=== PATIENT | female | born 1955 | race Caucasian/White ===

== ENCOUNTER → 2017-12-01 | Day surgery (SDC) | payer OTHER ==
[~2017-12-01] VITALS: Ht 167.6 cm; Wt 109.9 kg
[~2017-12-01] MED LIST: AMBI5TAB PO; ASPI-516 CHEW; BETA0.052 TOPICAL; CALC600T5 PO; CHLORHEXIDINE GLUCONATE 2 % 1 PACK (2 CLOTHS) TOPICAL PRN; DO NOT ADM ANY ANTICOAGULANT DRUGS PRN; ESCI10TA PO; FISHCAP4 PO; FLUT50SP EACH NARE; GLUCTAB32 PO; IBUP200C PO; INSULIN HUMAN REGULAR 1,000 UNITS/10 ML VIAL SQ PRN; KETAMINE HCL 10 MG/5 ML SYRINGE IV PUSH ONE; LACTATED RINGER'S 1000 ML IV PRN; LEVO.125 PO; LIDOCAINE HCL 1% PF 5 ML SYRINGE OTHER ONE; LOPE-1 PO; LOSA100T PO; MAGN100T4 PO; METF1000 PO; METOPROLOL TARTRATE 25 MG TAB PO PRN; MIDAZOLAM HCL 2 MG/2 ML VIAL ONE; MILK175T PO; POVIDONE IODINE 5% (ANTISEPSIS KIT) 4 APPLICATIONS EACH NARE PRN; PROPOFOL 200 MG/20 ML AMP IV ONE; RANI150T PO; SIMV10TA PO; SODIUM CHLORID 0.9% 500 ML IV PRN; SODIUM CHLORIDE 0.9% 20 ML VIAL IV ONE; TYLE325T PO; ZINC50TA2 PO; ceFAZolin 1,000 MG/NS 100 ML IV SCH; ceFAZolin INJ 1,000 MG VIAL ONE
[2017-12-01 11:51] LABS: BASOPHIL % 0.6 % (0.0-2.0); EOSINOPHIL # 0.5 TH/MM3 (0-0.4); EOSINOPHIL % 7.6 % (0.0-4.0); HEMOGLOBIN 12.5 GM/DL (11.6-15.3); LYMPHOCYTE # 1.7 TH/MM3 (1.0-4.8); MEAN CELL VOLUME 89.5 FL (80.0-100.0); MEAN CORPUSCULAR HEMOGLOBIN 30.2 PG (27.0-34.0); MEAN CORPUSCULAR HGB CONC 33.7 % (32.0-36.0); MEAN PLATELET VOLUME 8.4 FL (7.0-11.0); MONO % 8.2 % (0.0-8.0); MONOCYTE # 0.6 TH/MM3 (0-0.9); NEUT % 58.6 % (16.0-70.0); PLATELET COUNT 296 TH/MM3 (150-450); RED BLOOD COUNT 4.14 MIL/MM3 (4.00-5.30); RED CELL DISTRIBUTION WIDTH 13.8 % (11.6-17.2); WHITE BLOOD COUNT 6.9 TH/MM3 (4.0-11.0)
--- NOTE | 2017-12-01 13:59 | PD.OP ---
Operative Report Date of Surgery: Dec 01, 2017 Preoperative Diagnosis: Urge and rectal incontinence Postoperative Diagnosis: Same Procedure: InterStim battery failure Anesthesia: MAC with local Surgeon: Kris Sanchez Geological Manager(s): None Resident Surgeon: None Operation and Findings: 62-year-old female presented to the office with history of urge and rectal incontinence. Patient with InterStim battery failure requiring InterStim battery change. Risk and benefits were discussed preoperatively and the patient was willing to proceed. The patient was properly identified and placed in the prone position per the OR protocol, and MAC anesthesia was administered. She was prepped and draped in usual sterile fashion and preprocedure antibiotics were given. Local injection of half percent Marcaine was also administered to the area of the prior incision site. The previous upper buttock incision was opened using blunt dissection and the lead connection was identified and evaluated. The InterStim battery was then delivered out of the wound along with the lead. Care was taken to avoid damaging the lead. The single screw was loosened with a torque wrench and the lead was then from the InterStim battery. The the old battery was removed and the new battery was then placed into the area of the wound. The lead was then inserted into the new InterStim battery and secured with the torque wrench. The nurse member was placed into the pocket and the etched identification site was placed upwards and any excessive lead was placed around the neurotransmitter. The clinical operating systems programmer telemetry head, covered by a sterile sleeve, was placed over the implanted neurostimulator to ensure proper lead connection and that parameters were within normal range. Impedance were confirmed to be within normal limits, greater than 50 and less than 4000 ohms. The wound was irrigated with antibiotic solution and sterile water and closed with a 2-0 Vicryl suture. The skin was then closed with a running Monocryl suture. Counts were correct. Adhesive strips and gauze were placed over the incision and covered with transparent dressing. Blood loss was minimal. The patient was awoken and then transferred recovery in stable condition. Using clinical operating systems programmer the inner stem was then programmed. The patient was provided utilization instructions for the patient operating systems programmer prior to discharge. She tolerated the procedure well follow-up in the office in 1 month. CPT code for the procedure are as follows: [id number] Kris Sanchez DO Dec 01, 2017 13:59
[2017-12-01 16:00] VITALS: BP 159/74; PULSE 63; RESP 20; TEMP 98.2; O2SAT 95
--- NOTE | 2017-12-02 10:43 | EKG ---
Date Performed: 12/01/2017 Time Performed: 11:01:21 PTAGE: 62 years EKG: Normal Sinus rhythm Normal ECG PREVIOUS TRACING : 12/20/2011 10.18 Since the previous tracing, no significant change noted DOCTOR: Maverick Jimenez Interpretating Date/Time 12/02/2017 10:41:47
== END | disposition home or self-care (01) ==
LOC: HSDC 10:06
PROVIDERS: ATTEND Urology
DX: N39.41 Urge incontinence (principal); R15.9 Full incontinence of feces; I10 Essential (primary) hypertension
CPT/HCPCS: 00300; 64590; 82948; 85025; 88300; 93005; 95971; C1767; C1787; J0690; J2250

== ENCOUNTER → 2017-12-15 | Outpatient (CLI) | payer OTHER ==
[~2017-12-15] MED LIST changes: -CHLORHEXIDINE GLUCONATE 2 % 1 PACK (2 CLOTHS) TOPICAL PRN; -DO NOT ADM ANY ANTICOAGULANT DRUGS PRN; -INSULIN HUMAN REGULAR 1,000 UNITS/10 ML VIAL SQ PRN; -KETAMINE HCL 10 MG/5 ML SYRINGE IV PUSH ONE; -LACTATED RINGER'S 1000 ML IV PRN; -LIDOCAINE HCL 1% PF 5 ML SYRINGE OTHER ONE; -METOPROLOL TARTRATE 25 MG TAB PO PRN; -MIDAZOLAM HCL 2 MG/2 ML VIAL ONE; -POVIDONE IODINE 5% (ANTISEPSIS KIT) 4 APPLICATIONS EACH NARE PRN; -PROPOFOL 200 MG/20 ML AMP IV ONE; -SODIUM CHLORID 0.9% 500 ML IV PRN; -SODIUM CHLORIDE 0.9% 20 ML VIAL IV ONE; -ceFAZolin 1,000 MG/NS 100 ML IV SCH; -ceFAZolin INJ 1,000 MG VIAL ONE
[2017-12-15 14:27] LABS: AUTOMATED NEUTROPHIL # 3.3 TH/MM3 (1.8-7.7); BASOPHIL # 0.1 TH/MM3 (0-0.2); BASOPHIL % 0.8 % (0.0-2.0); EOSINOPHIL # 0.5 TH/MM3 (0-0.4); HEMATOCRIT 36.3 % (35.0-46.0); HEMOGLOBIN 12.3 GM/DL (11.6-15.3); LYMPH % 33.1 % (9.0-44.0); LYMPHOCYTE # 2.3 TH/MM3 (1.0-4.8); MEAN CELL VOLUME 89.5 FL (80.0-100.0); MEAN CORPUSCULAR HEMOGLOBIN 30.3 PG (27.0-34.0); MEAN CORPUSCULAR HGB CONC 33.8 % (32.0-36.0); MONO % 9.6 % (0.0-8.0); MONOCYTE # 0.7 TH/MM3 (0-0.9); NEUT % 48.5 % (16.0-70.0); PLATELET COUNT 285 TH/MM3 (150-450); RED BLOOD COUNT 4.05 MIL/MM3 (4.00-5.30); RED CELL DISTRIBUTION WIDTH 13.6 % (11.6-17.2); WHITE BLOOD COUNT 6.8 TH/MM3 (4.0-11.0)
[2017-12-15 14:29] LABS: BILIRUBIN, URINE NEG (NEG); BLOOD, URINE NEG (NEG); GLUCOSE,URINE NEG (NEG); KETONE, URINE NEG (NEG); MUCUS URINE FEW /lpf (OCC); NITRITE,URINE NEG (NEG); SQUAMOUS EPITHELIAL CELL URINE <1 /hpf (0-5); URINE COLOR YELLOW (YELLW/STRAW); URINE LEUKOCYTE ESTERASE NEG (NEG)
[2017-12-15 14:57] LABS: ALBUMIN 3.5 GM/DL (3.4-5.0); ALT (GPT) 77 U/L (10-53); AST (GOT) 54 U/L (15-37); BLOOD UREA NITROGEN 12 MG/DL (7-18); CALCIUM 9.1 MG/DL (8.5-10.1); CHLORIDE 110 MEQ/L (98-107); CREATININE 0.69 MG/DL (0.50-1.00); GLOMERULAR FILTRATION RATE 86 ML/MIN (>89); GLUCOSE,FASTING 102 MG/DL (74-99); SODIUM (NA) 143 MEQ/L (136-145)
[2017-12-15 14:59] LABS: ALKALINE PHOSPHATASE 89 U/L (45-117); TOTAL BILIRUBIN ADULT 0.3 MG/DL (0.2-1.0); TOTAL PROTEIN 7.3 GM/DL (6.4-8.2)
== END ==
LOC: CPRE 13:43
PROVIDERS: ATTEND Obstetrics & Gynecology Gynecology
DX: Z01.812 Encounter for preprocedural laboratory examination (principal); Z01.818 Encounter for other preprocedural examination; N39.3 Stress incontinence (female) (male)
CPT/HCPCS: 36415; 80053; 81001; 85025

== ENCOUNTER → 2017-12-21 | Day surgery (SDC) | payer OTHER ==
--- NOTE | 2017-12-15 14:17 | MH ---
cc: Bro Bermudez MD DATE OF ADMISSION: 12/21/2017 REASON FOR ADMISSION: Scheduled for admission on 12/21/2017 for a transobturator sling. HISTORY OF PRESENT ILLNESS: The patient is a 62-year-old white female, 0, who has issues with stress urinary incontinence. She has also had issues with urge incontinence and had an InterStim placed 5 years ago and had recent battery change. Despite the InterStim she still has issues with stress incontinence. She has had urodynamic study that shows she does leak at approximately 50% capacity and has been apprised of the risks and benefits and wants to proceed with a transobturator sling. PAST MEDICAL HISTORY: The patient's medical history is notable for BRCA positive status. She has had prophylactic oophorectomy, hysterectomy and mastectomy. She is on no estrogen replacement. The patient has issues with hypertension, hypercholesterolemia, elevated body mass index, GERD, hypothyroidism. MEDICATIONS: Losartan 100 mg every day, metformin 1000 mg every day, simvastatin 10 mg every day. SOCIAL HISTORY: He does not smoke, use alcohol or drugs. SURGICAL HISTORY: As above, oophorectomy, hysterectomy, mastectomy, InterStim placement with battery change. PETAL CUTTER HISTORY: As above. OB HISTORY: Never been . FAMILY HISTORY: Notable for breast and PETAL CUTTER carcinoma. REVIEW OF SYSTEMS: As above. No chest pain, orthopnea, PND. No nausea, vomiting, fever or chills. No vaginal bleeding or discharge. Remainder of 14-point review negative. PHYSICAL EXAMINATION: VITAL SIGNS: Height is 5 feet 6 inches, weight 241, BMI is 40. Blood pressure 120/70. GENERAL: Alert and oriented, no acute distress. No sign of cognitive dysfunction, depression. HEENT: Within normal limits. NECK: Supple. No JVD. CHEST: Clear. HEART: Regular rate and rhythm. ABDOMEN: Soft, nontender. No hepatosplenomegaly, no CVA tenderness. PELVIC: Exam will be detailed under anesthesia. EXTREMITIES: Normal skin without rashes. NEURO EXAM: Nonfocal. No DVT signs. ASSESSMENT AND PLAN: Patient with stress incontinence, no detrusor instability, no significant postvoid residual. No hypermobility on clinical exam. Urodynamic study shows leaking at 50% capacity with a total capacity under 300 mL. The patient and I have discussed options for management and treatment. She is aware of the risks, benefits and alternatives of the planned procedure including damage to surrounding organs, bleeding, infection, pain with intercourse, erosion of sling, possibility that urgency may be exacerbated, frequency may worsen and a sling may not work at all in terms of reducing her stress incontinence. She has elevated risk for infection and poor outcome secondary to body mass index and glucose intolerance but at this point her A1c is less than 6.5 and I believe she has made informed choice to proceed. At this point, anticipate outpatient procedure. Will use antibiotic prophylaxis with Ancef 2 grams. DVT prophylaxis with sequential compression device. MD BRIAN Stewart/NUNO , 01:50 PM , 02:16 PM
[~2017-12-21] VITALS: Ht 167.6 cm; Wt 110.0 kg
[~2017-12-21] MED LIST changes: +ACETAMINOPHEN 1000 MG/100 ML 100 ML IV ONE; +CHLORHEXIDINE GLUCONATE 2 % 1 PACK (2 CLOTHS) TOPICAL PRN; +DEXAMETHASONE SOD PHOS 4 MG/ML VIAL IV ONE; +DO NOT ADM ANY ANTICOAGULANT DRUGS PRN; +ESTROGENS CONJUGATED VAG CREA 15 APPL/30 GM TUBE ONE; +FLUORESCEIN SOD 10% SOLN 500 MG/5 ML AMP ONE; +GLYCOPYRROLATE 1 MG/5 ML SYRINGE IV PUSH ONE; +INSULIN HUMAN REGULAR 1,000 UNITS/10 ML VIAL SQ PRN; +KETOROLAC TROMETHAMINE 30 MG/ML (IVP) VIAL IV PUSH ONE; +KETOROLAC TROMETHAMINE 30 MG/ML (IVP) VIAL IV PUSH PRN; +LACTATED RINGER'S 1000 ML IV PRN; +LIDOCAINE 1%/EPINEPHrine 1:100,000 SOLN 50 ML VIAL ONE; +LIDOCAINE HCL 1% PF 5 ML SYRINGE OTHER ONE; +METOPROLOL TARTRATE 25 MG TAB PO PRN; +MIDAZOLAM HCL 2 MG/2 ML VIAL ONE; +NEOSTIGMINE 5 MG/5 ML SYRINGE IV PUSH ONE; +ONDANSETRON HCL 4 MG/2 ML VIAL IV ONE; +ONDANSETRON HCL 4 MG/2 ML VIAL IV PUSH PRN; +POVIDONE IODINE 5% (ANTISEPSIS KIT) 4 APPLICATIONS EACH NARE PRN; +PROPOFOL 200 MG/20 ML AMP IV ONE; +ROCURONIUM INJ 50 MG/5 ML SYRINGE IV PUSH ONE; +SODIUM CHLORID 0.9% 500 ML IV PRN; +ceFAZolin 2 GM/DEX PREMIX 50 ML IV SCH; +traMADol HCL 50 MG TAB PO PRN
--- NOTE | 2017-12-21 11:45 | MP ---
cc: Bro Bermudez MD DATE OF OPERATION: 12/21/2017 PREOPERATIVE DIAGNOSIS: Stress urinary incontinence, code N39.3. POSTOPERATIVE DIAGNOSES: Stress urinary incontinence, code N39.3; midline cystocele, code N81.11. PROCEDURE: Transobturator sling using Hardik Desara polypropylene sling, code 18807; anterior repair, code 91748; diagnostic cystoscopy, code 16657. SURGEON: Bro Bermudez MD ANESTHESIA: General endotracheal. REGISTERED OCCUPATIONAL THERAPIST: [facility] staff x 2. FLUIDS: 1000 mL crystalloid. URINE OUTPUT: 300 mL. BLOOD LOSS: 20 mL FINDINGS: External genitalia poorly estrogenized. POP-Q score Aa is -1, Ap is -2, point C is -8, total vaginal length is 10, genital hiatus is 4, perineal body is 6. Following repair Aa is -3. Cystoscopy shows normal trigone, good coaptation of urethra, ureteral orifices patent x 2, dome and base of bladder normal. SPECIMENS: None. COMPLICATIONS: None. DISPOSITION: To recovery, stable. COUNTS: Needle and sponge counts correct. DRAINS: Estrada catheter. ANTIBIOTIC PROPHYLAXIS: Ancef 2 grams. DVT PROPHYLAXIS: Sequential compression devices. Timeout procedure and identification per protocol. SUMMARY OF INDICATION AND PROCEDURE: The patient with a history of mixed urinary incontinence with stress and urge components. She has had an InterStim placed and still has issues with stress incontinence. She had urodynamic study that showed no uninhibited detrusor activity, but did show leaking at approximately half capacity. There is no significant postvoid residual. Her capacity was approximately 300 mL. DESCRIPTION OF PROCEDURE: The patient was taken to the operating theater, identified, prepped and draped in the usual sterile fashion appropriate for planned procedures. She was placed in dorsal lithotomy position with careful attention paid to placing the legs in stirrups to avoid undue stress to sensitive neurovascular structures. Above findings noted. Neurovascular integrity documented. Estrada catheter was placed. Methylene blue was instilled into the bladder. Obturator foramen were identified and infiltrated with epinephrine and lidocaine solution. The vaginal mucosa was infiltrated with epinephrine and lidocaine solution. A midline incision was made using sharp scissors. Mobilization of the urethra was uncomplicated. There was no spill of methylene blue. The C hook was placed from a lateral to medial position on each side. Tape was introduced and placed again in the mid urethral portion using a scalpel handle as a spacer. Anterior repair performed in standard fashion. Vaginal mucosa closed with a running Vicryl suture and using a hemostatic matrix to obviate the need for packing. Cystoscopy with above findings. Normal urethra and dome and base of bladder. No sign of any damage to the bladder or urethra. The patient tolerated the procedure well and transferred to recovery room in stable condition. Bro Bermudez MD CJCarmel/JULEE , 11:04 AM , 11:45 AM
[2017-12-21 12:35] VITALS: BP 108/50; PULSE 59; RESP 18; TEMP 98; O2SAT 93
== END | disposition home or self-care (01) ==
LOC: HSDC 07:30
PROVIDERS: ATTEND Obstetrics & Gynecology Gynecology
DX: N39.3 Stress incontinence (female) (male) (principal); I10 Essential (primary) hypertension; E11.9 Type 2 diabetes mellitus without complications; E03.9 Hypothyroidism, unspecified; E78.00 Pure hypercholesterolemia, unspecified; K21.9 Gastro-esophageal reflux disease without esophagitis; Z79.84 Long term (current) use of oral hypoglycemic drugs; Z90.710 Acquired absence of both cervix and uterus
CPT/HCPCS: 00860; 57288; C1771; J0131; J0690; J1100; J1885; J2250; J2405; J2710; J3010; J7120